=== PATIENT | male | born 1945 | race Caucasian/White ===

== ENCOUNTER 2016-12-01 08:39 | Emergency (ER) | payer MEDICARE ==
[~2016-12-01] VITALS: Ht 175.2 cm; Wt 82.6 kg
[~2016-12-01 08:39] MED LIST: ASPIRIN325 M2 PO; CHLORDIAZEPOXID10 M1 PO; CIPRO500 MG PO; FOLIC ACID1 MG PO; MOTRIN800 MG PO; MULTIVITAMIN1 CTB PO; PRILOSEC20 MG PO; THIAMINE-100100 MG PO
[2016-12-01 09:26] LABS: BASO # 0.1 10*3/uL (0.0-0.1); BASO % 0.4 % (0.0-1.0); EOS # 0.2 10*3/uL (0.0-0.4); EOS % 1.5 % (1.0-4.0); HEMATOCRIT 51.7 % (42.0-52.0); HEMOGLOBIN 16.7 g/dl (14.0-18.0); IG # 0.1 10*3/uL (0.0-0.1); LYMPH # 4.6 10*3/uL (1.3-4.4); LYMPH % 40.7 % (27.0-41.0); MEAN CELL VOLUME 89.8 fl (80.0-94.0); MEAN CORPUSCULAR HGB CONC 32.3 g/dl (33.0-37.0); MEAN PLATELET VOLUME 10.9 fl (9.6-12.3); MONO # 0.5 10*3/uL (0.1-1.0); MONO % 4.1 % (3.0-9.0); NEUT % 52.7 % (47.0-73.0); PLATELET COUNT AUTOMATED 101 10*3/uL (130-400); RED BLOOD COUNT 5.76 10*6/uL (4.50-5.90); RED CELL DISTRI WIDTH 15.7 % (0-14.5); WHITE BLOOD COUNT 11.3 10*3/uL (4.8-10.8)
[2016-12-01 09:36] LABS: PROTHROMBIN TIME 10.8 SECONDS (9.0-12.4)
[2016-12-01 09:40] LABS: ALBUMIN 2.8 gm/dl (3.1-4.5); ALKALINE PHOSPHATASE 91 U/L (45-117); BILIRUBIN, TOTAL 1.3 mg/dl (0.2-1.0); BUN 37 mg/dl (7-24); C-REACTIVE PROTEIN 3.99 MG/DL (0-0.3); CARBON DIOXIDE 32 mmol/L (21-32); CHLORIDE 96 mmol/L (98-107); CKMB 1.2 ng/ml (0.5-3.6); CPK 97 U/L (39-308); EST GLOM FILT AFRICAN AMERICAN 34 ml/min; GLUCOSE 91 mg/dL (65-99); POTASSIUM 3.1 mmol/L (3.5-5.1); SGOT/AST 27 IU/L (3-35); SGPT/ALT 19 U/L (12-78); SODIUM 138 mmol/L (136-145); TOTAL PROTEIN 6.5 gm/dL (6.4-8.2)
[2016-12-01 09:41] LABS: TROPONIN I < 0.015 ng/ml (<0.045)
[2016-12-01 12:22] VITALS: BP 138/86
== END 2016-12-01 14:02 | disposition short-term general hospital (02) ==
LOC: ED 08:39
PROVIDERS: Emergency Medicine
DX: I77.9 Disorder of arteries and arterioles, unspecified (principal); N17.9 Acute kidney failure, unspecified; L03.115 Cellulitis of right lower limb; F17.200 Nicotine dependence, unspecified, uncomplicated

== ENCOUNTER 2019-02-04 04:44 | Emergency (ER) | payer MEDICARE ==
[~2019-02-04] VITALS: Ht 187.9 cm; Wt 92.5 kg
--- NOTE | ~2019-02-04 | EKG ---
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
[2019-02-04 05:24] LABS: HEMOGLOBIN 12.4 g/dl (14.0-18.0); MEAN CELL VOLUME 97.5 fl (80.0-94.0); MEAN CORPUSCULAR HGB 28.1 pg (27.0-31.0); MEAN CORPUSCULAR HGB CONC 28.8 g/dl (33.0-37.0); MEAN PLATELET VOLUME 9.7 fl (9.6-12.3); PLATELET COUNT AUTOMATED 84 10*3/uL (130-400); RED BLOOD COUNT 4.41 10*6/uL (4.50-5.90); RED CELL DISTRI WIDTH 15.4 % (0-14.5)
[2019-02-04 05:28] LABS: WHITE BLOOD COUNT 63.9 10*3/uL (4.8-10.8)
[2019-02-04 05:42] LABS: ALBUMIN 4.3 gm/dl (3.1-4.5); CREATININE 1.77 mg/dL (0.70-1.30); POTASSIUM 4.5 mmol/L (3.5-5.1); TOTAL PROTEIN 7.4 gm/dL (6.4-8.2)
[2019-02-04 05:55] LABS: BASOPHILS 1 % (0-1); TOTAL CELLS COUNTED 100 #CELLS
[2019-02-04 05:56] LABS: PLATELET SUFFICIENCY LOW (NORMAL)
[2019-02-04 07:07] LABS: ACT PARTIAL THROMBO TIME 26.3 SECONDS (20.0-32.1); INTERNATIONAL NORM RATIO 0.9 (2.0-3.5)
[2019-02-04 07:32] VITALS: BP 107/76
[2019-02-04 08:00] LABS: BILIRUBIN NEGATIVE (NEGATIVE); BLOOD NEGATIVE (NEGATIVE); CLARITY SL CLOUDY (CLEAR); COLOR YELLOW (YELLOW); GLUCOSE NEGATIVE (NEGATIVE); KETONE NEGATIVE (NEGATIVE); NITRITE NEGATIVE (NEGATIVE); PH 5.5 (5.0-9.0); SPECIFIC GRAVITY >= 1.030 (1.005-1.030); UROBILINOGEN 0.2 E.U./dl (0.2-1.0)
[2019-02-04 08:16] LABS: LEUKO ESTERASE NEGATIVE (NEGATIVE)
[2019-02-04 08:17] LABS: BACTERIA 3+
== END 2019-02-04 09:18 | disposition short-term general hospital (02) ==
LOC: ED 04:44
PROVIDERS: Emergency Medicine
DX: C95.00 Acute leukemia of unspecified cell type not having achieved remission (principal); Z98.890 Other specified postprocedural states